=== PATIENT | male | born 1955 | race American Indian/Alaskan Native ===

== ENCOUNTER 2023-08-10 16:57 | Emergency (ER) | payer OTHER ==
[~2023-08-10] VITALS: Ht 172.7 cm; Wt 73.0 kg
[2023-08-10 17:12] VITALS: TEMP 98.3; O2SAT 97
[2023-08-10] MEDS ORDERED: ONDANSETRON HCL 4MG/2ML INJ IV STA (17:27)
[2023-08-10] MEDS ORDERED: SODIUM CHLORIDE 0.9% 1,000 ML IV ONE (17:30)
[2023-08-10 18:10] LABS: BASOPHILS % 0.3 % (0.0-2.0); EOSINOPHILS % 1.6 % (0.0-5.0); HEMATOCRIT. 41.4 % (42.0-52.0); HEMOGLOBIN. 13.9 g/dL (14.0-18.0); MEAN CORPUSCULAR HEMOGLOBIN 31.8 pg (28.0-32.0); MEAN CORPUSCULAR HGB CONC 33.6 g/dL (31.0-37.0); MEAN CORPUSCULAR VOLUME 94.5 fL (80.0-94.0); MEAN PLATELET VOLUME 7.8 fl (7.4-10.4); MONOCYTES % 4.5 % (2.0-8.0); NEUTROPHILS % 80.6 % (40.0-76.0); PLATELET 215 x1000/uL (130-400); RED BLOOD CELL COUNT 4.39 mill/uL (4.7-6.1); WHITE BLOOD COUNT 9.3 x1000/uL (4.5-11.0)
[2023-08-10 18:12] LABS: DIFFERENTIAL COMMENT 1
[2023-08-10 18:23] LABS: ALANINE AMINOTRANSFERASE 20 IU/L (10-49); ALBUMIN 3.7 g/dL (3.2-4.8); ASPARTATE AMINOTRANSFERASE 32 IU/L (<34); BILIRUBIN TOTAL 1.7 mg/dL (0.1-1.0); CALCIUM 8.6 mg/dL (8.7-10.4); CARBON DIOXIDE 23 mEq/L (21-32); CHLORIDE 107 mEq/L (98-107); CREATININE 1.1 mg/dL (0.6-1.3); GLUCOSE 200 mg/dL (70-105); POTASSIUM 4.5 mEq/L (3.5-5.1); PROTEIN TOTAL 6.4 g/dL (6.0-8.3); SODIUM 139 mEq/L (136-145); UREA NITROGEN BLOOD 12 mg/dL (9-23)
[2023-08-10 18:29] LABS: TROPONIN I HIGH SENSITIVITY < 4 ng/L (3.0-53)
[2023-08-10] MEDS ORDERED: LEVO750T68 MT (20:02)
[2023-08-10 20:09] VITALS: BP 130/84; PULSE 88; RESP 14
== END 2023-08-10 20:10 | disposition home or self-care (01) ==
LOC: ER 16:57
DX: R55 Syncope and collapse (principal); J45.909 Unspecified asthma, uncomplicated; E11.9 Type 2 diabetes mellitus without complications; I10 Essential (primary) hypertension
CPT/HCPCS: 99285; 96374; 71045; 96361; 80053; 83880; 85025; 84484; 36415; 93005; J2405; J7030

== ENCOUNTER 2024-12-31 10:03 | Inpatient (IN) | payer OTHER ==
[~2024-12-31] VITALS: Ht 172.7 cm; Wt 84.4 kg
[~2024-12-31 10:03] MED LIST: LEVO750T68 MT
[2024-12-31 10:46] LABS: BASOPHILS % 0.7 % (0.0-2.0); DIFFERENTIAL COMMENT 0; EOSINOPHILS % 0.6 % (0.0-5.0); HEMATOCRIT. 42.5 % (42.0-52.0); HEMOGLOBIN. 13.9 g/dL (14.0-18.0); LYMPHOCYTES % 7.3 % (20.0-50.0); MEAN CORPUSCULAR HEMOGLOBIN 33.6 pg (28.0-32.0); MEAN CORPUSCULAR HGB CONC 32.8 g/dL (31.0-37.0); MEAN CORPUSCULAR VOLUME 102.7 fL (80.0-94.0); MEAN PLATELET VOLUME 7.7 fl (7.4-10.4); MONOCYTES % 4.6 % (2.0-8.0); NEUTROPHILS % 86.8 % (40.0-76.0); PLATELET 236 x1000/uL (130-400); RED BLOOD CELL COUNT 4.14 mill/uL (4.7-6.1); RED CELL DISTRIBUTION WIDTH 14.9 % (11.6-14.6); WHITE BLOOD COUNT 11.2 x1000/uL (4.5-11.0)
[2024-12-31 10:56] LABS: CARBON DIOXIDE 23 mEq/L (21-32); CHLORIDE 103 mEq/L (98-107); POTASSIUM 4.3 mEq/L (3.5-5.1); SODIUM 135 mEq/L (136-145)
[2024-12-31 10:57] LABS: CALCIUM 8.8 mg/dL (8.7-10.4)
[2024-12-31 11:01] LABS: GLUCOSE 193 mg/dL (70-105)
[2024-12-31 11:02] LABS: TROPONIN I HIGH SENSITIVITY 4 ng/L (3.0-53); UREA NITROGEN BLOOD 9 mg/dL (9-23)
[2024-12-31] MEDS ORDERED: ATOR20TA65 PO (15:33)
[2024-12-31] MEDS ORDERED: LISI20TA31 PO (15:33)
[2024-12-31] MEDS ORDERED: ATEN50TA PO (15:33)
[2024-12-31] MEDS ORDERED: FINA5TAB11 PO (15:33)
[2024-12-31] MEDS ORDERED: ONDANSETRON HCL 4MG/2ML INJ IV PRN (15:45)
[2024-12-31] MEDS ORDERED: ZOLPIDEM TARTRATE 5MG TABLET PO PRN (15:45)
[2024-12-31] MEDS ORDERED: DOCUSATE SODIUM 100MG CAPSULE PO PRN (15:45)
[2024-12-31] MEDS ORDERED: MAGNESIUM/ALUMINUM HYDROXIDE/SIMETHICONE 30ML UDC PO PRN (15:45)
[2024-12-31 17:24] VITALS: BP 168/74; PULSE 80; RESP 20; TEMP 36.9
[2024-12-31] MEDS: PANTOPRAZOLE 40MG DR TABLET PO SCH (17:40)
[2024-12-31 18:27] VITALS: BP 168/76; PULSE 92; RESP 20; TEMP 36.8; O2SAT 98
[2024-12-31] MEDS ORDERED: DEXTROSE 50% WATER 50ML SYRINGE IV PRN (18:45)
[2024-12-31 19:57] VITALS: BP 165/76; PULSE 92; RESP 20; TEMP 38.1; O2SAT 98
[2024-12-31] MEDS: ACETAMINOPHEN 325MG TABLET PO PRN (20:51)
[2024-12-31] MEDS: ATORVASTATIN CALCIUM 40MG TABLET PO SCH (20:52)
[2024-12-31] MEDS: BLOOD SUGAR DIAGNOSTIC STRIP TEST SCH (20:56)
[2024-12-31] MEDS: INSULIN LISPRO 100 UNITS/ML SUBCUT SCH (21:16)
[2025-01-01] VITALS (7 sets, daily range): BP systolic 151–190; BP diastolic 75–96; PULSE 75–94; RESP 20; TEMP 36.9–37.9; O2SAT 94–98
[2025-01-01 00:44] LABS: TROPONIN I HIGH SENSITIVITY 9 ng/L (3.0-53)
[2025-01-01 06:53] LABS: CHLORIDE 103 mEq/L (98-107); POTASSIUM 3.7 mEq/L (3.5-5.1); SODIUM 138 mEq/L (136-145)
[2025-01-01 06:54] LABS: CARBON DIOXIDE 26 mEq/L (21-32)
[2025-01-01 06:55] LABS: CALCIUM 9.1 mg/dL (8.7-10.4)
[2025-01-01 06:57] LABS: BASOPHILS % 0.4 % (0.0-2.0); DIFFERENTIAL COMMENT 0; EOSINOPHILS % 0.3 % (0.0-5.0); HEMATOCRIT. 39.9 % (42.0-52.0); HEMOGLOBIN. 13.7 g/dL (14.0-18.0); LYMPHOCYTES % 17.5 % (20.0-50.0); MEAN CORPUSCULAR HEMOGLOBIN 34.8 pg (28.0-32.0); MEAN CORPUSCULAR HGB CONC 34.2 g/dL (31.0-37.0); MEAN CORPUSCULAR VOLUME 101.9 fL (80.0-94.0); MONOCYTES % 10.4 % (2.0-8.0); NEUTROPHILS % 71.4 % (40.0-76.0); PLATELET 204 x1000/uL (130-400); RED BLOOD CELL COUNT 3.92 mill/uL (4.7-6.1); RED CELL DISTRIBUTION WIDTH 14.9 % (11.6-14.6); WHITE BLOOD COUNT 5.9 x1000/uL (4.5-11.0)
[2025-01-01 06:59] LABS: CREATININE 0.9 mg/dL (0.6-1.3); GLUCOSE 151 mg/dL (70-105)
[2025-01-01 07:00] LABS: TROPONIN I HIGH SENSITIVITY 10 ng/L (3.0-53); UREA NITROGEN BLOOD 10 mg/dL (9-23)
[2025-01-01 07:04] LABS: THYROID STIMULATING HORMONE 0.64 uIU/mL (0.55-4.78)
[2025-01-01] MEDS: AMLODIPINE 10MG TABLET PO NR (11:19)
[2025-01-02] MEDS ORDERED: AMLODIPINE 10MG TABLET PO SCH (09:00)
== END 2025-01-01 18:00 | disposition home or self-care (01) | DRG 312 ==
LOC: ER 10:03 → EDBEDREQ 12:28 → EDBEDREQTM 12:28 → 7WST 16:55
PROVIDERS: ADMIT Internal Medicine Pulmonary Disease; ATTEND Internal Medicine Pulmonary Disease
DX: R55 Syncope and collapse (principal); E11.9 Type 2 diabetes mellitus without complications; I10 Essential (primary) hypertension; E78.5 Hyperlipidemia, unspecified; I25.10 Atherosclerotic heart disease of native coronary artery without angina pectoris; J45.909 Unspecified asthma, uncomplicated; Z88.0 Allergy status to penicillin; Z79.4 Long term (current) use of insulin; Z79.899 Other long term (current) drug therapy; Z88.8 Allergy status to other drugs, medicaments and biological substances
CPT/HCPCS: 36415; 70551; 71045; 80048; 82962; 83880; 84443; 84484; 85025; 93005; 97162; 99285; J1815